=== PATIENT | male | born 1965 | race African-American/Black ===

== ENCOUNTER → 2017-01-16 | Outpatient (CLI) | payer MEDICAID, MEDICARE ==
[~2017-01-16] MED LIST: AMLO10TA2 PO; AMOX1TAB64 PO; ASPI-621 PO; ATOR20TA PO; CARV6.2512 PO; GABA300C10 PO; HUM100VI6 INJ; LISI-167 PO; LISI-170 PO; METO25TA35 PO; NPH,100V SQ; OXYC10TA6 PO; long acting insulin INJ
== END | disposition home or self-care (01) ==
LOC: CFH 10:25
PROVIDERS: ATTEND Internal Medicine Cardiovascular Disease
DX: I51.7 Cardiomegaly (principal); I08.1 Rheumatic disorders of both mitral and tricuspid valves; I37.1 Nonrheumatic pulmonary valve insufficiency; E11.9 Type 2 diabetes mellitus without complications
CPT/HCPCS: 93306

== ENCOUNTER 2021-02-28 10:25 | Emergency (ER) | payer MEDICARE ==
[~2021-02-28] VITALS: Ht 185.4 cm; Wt 105.0 kg
[~2021-02-28 10:25] MED LIST changes: +AMLO-150 PO; +AMLO-211 PO; -AMLO10TA2 PO; -ASPI-621 PO; +ASPI81TA45 PO; +ATOR10TA9 PO; +BENA20TA5 PO; +CARV12.52 PO; +CLON0.1T2 PO; +CLON0.2T PO; +DOXA2TAB9 PO; +FURO40TA6 PO; +FURO80TA3 PO; +HYDR-3343 PO; +HYDR100T25 PO; +METO2.5T PO; +SEVE800T8 PO
--- NOTE | 2021-02-28 10:51 | NUR ---
Pt PIPO ACEVEDO after son called 911. Pt with last known well time of 2300 last night. Pt woke up this morning on floor after having fallen out of bed. Pt states he worked to get himself food as he thought his blood sugar might be low. Per EMS son stated pt with ALOC. Presents A&Ox4. Pt states "this happened about 3 weeks ago too." MD Lemos to bedside for eval.
[2021-02-28 11:35] LABS: BASOPHILS % (AUTO) 1 % (0-1); EOSINOPHILS % (AUTO) 0 % (1-7); LYMPHOCYTES % (AUTO) 12 % (22-44); MEAN CORPUSCULAR HEMOGLOBIN 33.7 pg (27.5-34.5); MEAN CORPUSCULAR HGB CONC 34.7 g/dL (33.2-36.2); MONOCYTES % (AUTO) 8 % (2-9); NEUTROPHILS % (AUTO) 79 % (42-75); PLATELET COUNT 244 x10^3/uL (130-400); RED BLOOD COUNT 3.01 x10^6/uL (4.38-5.82); RED CELL DISTRIBUTION WIDTH 14.8 % (9.4-14.8)
[2021-02-28 11:45] LABS: ANION GAP 9 mmol/L (5-15); CALCIUM 9.5 mg/dL (8.5-10.1); CHLORIDE 98 mmol/L (98-107); CREATININE 6.53 mg/dL (0.7-1.3)
[2021-02-28] MEDS ORDERED: CALCIUM CARBONATE 500 MG TAB.CHEW ONE ×2 (11:50→11:55)
[2021-02-28] MEDS ORDERED: CALCIUM CARBONATE 500 MG TAB.CHEW PO PRN (12:00)
[2021-02-28] MEDS ORDERED: SODIUM CHLORIDE 0.9% 1,000ML IVBOLUS ONE (12:30)
[2021-02-28] MEDS ORDERED: BENA5TAB3 PO (12:41)
--- NOTE | 2021-02-28 12:41 | NUR ---
Med rec done to best of pt abilities.
--- NOTE | 2021-02-28 12:42 | NUR ---
Orthostatics done and standing BP 84/46. US guided IV placed and 500cc fluid bolus infusing now.
--- NOTE | 2021-02-28 13:37 | NUR ---
This RN repeated orthostatics after fluid bolus. Pt successfully ambulated approx 40 feet before he stated he was feeling light headed and dizzy and needed to sit down. Pt wheeled back to room.
[2021-02-28 14:16] LABS: MICROSCOPIC AUTO
--- NOTE | 2021-02-28 14:59 | NUR ---
MD Lemos back to bedside to update pt on POC. Pt to receive food and another 500cc bolus and be rechecked. Pt agrees to POC. Pt educated about labs by MD and understands he should continue with dialysis schedule without needing to go today.
[2021-02-28] MEDS ORDERED: SODIUM CHLORIDE 0.9%, 500ML IVBOLUS ONE (15:00)
--- NOTE | 2021-02-28 15:14 | NUR ---
FSBG 152. Pt has not eaten today and receiving more fluids. Ate half of a PB&J sandwhich.
[2021-02-28] MEDS ORDERED: NEOSPORIN OINT. PKT 1 PACKET ONE (16:25)
[2021-02-28 16:52] VITALS: BP 132/68
--- NOTE | 2021-02-28 16:53 | NUR ---
Pt ambulatory without difficulty with cane. Passed roattest prior to d/c.
== END 2021-02-28 16:58 | disposition home or self-care (01) ==
LOC: ED 14:10
DX: E16.2 Hypoglycemia, unspecified (principal); I95.1 Orthostatic hypotension; E86.0 Dehydration; R94.31 Abnormal electrocardiogram [ECG] [EKG]; I48.91 Unspecified atrial fibrillation; E11.9 Type 2 diabetes mellitus without complications; I11.0 Hypertensive heart disease with heart failure; I50.9 Heart failure, unspecified
CPT/HCPCS: 36415; 80048; 81001; 82040; 82962; 85025; 87086; 93005; 96360; 96361; 99285; J7030; J7040

== ENCOUNTER 2021-03-02 09:53 | Inpatient (IN) | payer MEDICARE ==
[~2021-03-02] VITALS: Ht 182.9 cm; Wt 101.6 kg
[~2021-03-02 09:53] MED LIST changes: +BENA5TAB3 PO
[2021-03-02] MEDS ORDERED: LORazepam 2 MG/ML, 1ML ONE (10:03)
[2021-03-02] MEDS: LORazepam 2 MG/ML, 1ML IVPush ONE ×2 (10:04→11:30)
[2021-03-02] MEDS ORDERED: LEVETIRACETAM 500 MG in SODIUM CHLORIDE 0.9% 100 ML IV ONE (10:30)
[2021-03-02] MEDS ORDERED: PLEASE ENTER HEIGHT AND WEIGHT MC SCH (10:30)
--- NOTE | 2021-03-02 10:30 | NUR ---
pt back from CT
[2021-03-02] MEDS ORDERED: PROPOFOL 100 ML IV PRN (11:00)
[2021-03-02] MEDS ORDERED: LEVETIRACETAM 1,000 MG in SODIUM CHLORIDE 0.9% 100 ML IV ONE (11:00)
[2021-03-02 11:11] LABS: BASOPHILS % (AUTO) 1 % (0-1); EOSINOPHILS % (AUTO) 1 % (1-7); LYMPHOCYTES % (AUTO) 13 % (22-44); MEAN CORPUSCULAR HEMOGLOBIN 33.8 pg (27.5-34.5); MEAN CORPUSCULAR HGB CONC 34.2 g/dL (33.2-36.2); MONOCYTES % (AUTO) 8 % (2-9); NEUTROPHILS % (AUTO) 77 % (42-75); PLATELET COUNT 206 x10^3/uL (130-400); RED BLOOD COUNT 2.59 x10^6/uL (4.38-5.82); RED CELL DISTRIBUTION WIDTH 15.8 % (9.4-14.8)
[2021-03-02] MEDS ORDERED: FENTANYL PF 100 MCG/2ML ONE (11:18)
[2021-03-02 11:23] LABS: ALANINE AMINOTRANSFERASE 16 U/L (12-78); ALBUMIN 3.2 g/dL (3.4-5.0); ANION GAP 16 mmol/L (5-15); CALCIUM 9.5 mg/dL (8.5-10.1); CHLORIDE 98 mmol/L (98-107); CREATININE 8.66 mg/dL (0.7-1.3)
[2021-03-02 11:25] LABS: ALKALINE PHOSPHATASE 86 U/L (45-117); BILIRUBIN,TOTAL 0.8 mg/dL (0.2-1.0); TOTAL PROTEIN 7.4 g/dL (6.4-8.2)
--- NOTE | 2021-03-02 11:29 | NUR ---
LATE ENTRY D/T PATIENT CARE: PT MONITORED DURING CT, ACCOMPANIED BY THIS RN. 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 APPROX 5 MIN AFTER [address] FROM CT, PT BEGAN TO POSTURE AND HAVE INCREASED AGITATION, NOT FOLLOWING ANY COMMANDS. MD LEGGETT CALLED TO BEDSIDE. ONCE MD AT BEDSIDE, PT BECAME APNEIC AND BRADYCARDIC ([place] RATE 40'S), SPOW DROPPED TO 40%. PULSE PALPATED THROUGHOUT EPISODE. PT VENTILATED WITH BVM, SAT RETURNED TO 98% WITH VENTILATION. PT MOVED TO TRAUMA 3. PT INTUBATED AT APPROX 1035, TOLERATED WELL WITH NO COMPLICATIONS. SON AT BEDSIDE, UPDATED AND GIVEN VERBAL REASSURANCE THROUGHOUT. PT TOLERATED WELL WITH NO COMPLICATIONS. NG PLACED TO RIGHT NARE. ALL MONITORS REMAIN IN PLACE. REPORT GIVEN TO ANDERSON CAO AT BEDSIDE, CARE ASSUMED BY ANDERSON MCCARTHY.
--- NOTE | 2021-03-02 11:29 | NUR ---
ASSUMED CARE FROM RODOLFO BARRON. 1043 ETOMIDATE/SUCC PER 1044 BGL 204 1046 8.[address], [address] LAW 1047 KEPPRA INFUSING 1049 2ND PIV 18G FELA 1057 14 FR NGT BY RODOLFO BARRON 1116 100 MCG [place] [address] NO ANSWER [address] NO ANSWER ABG, CXR PENDING.
[2021-03-02] MEDS ORDERED: LEVETIRACETAM 1,500 MG in SODIUM CHLORIDE 0.9% 100 ML IV ONE (11:30)
[2021-03-02 11:31] LABS: MICROSCOPIC AUTO
[2021-03-02 11:32] LABS: ANISOCYTOSIS 1+; POLYCHROMASIA 1+
[2021-03-02 11:33] LABS: <PLATELET ESTIMATE> ADEQUATE; <PLT MORPHOLOGY> NORMAL PLT MORPH
--- NOTE | 2021-03-02 11:33 | NUR ---
CT READY, RESP TO COME IN 10 MIN.
--- NOTE | 2021-03-02 11:36 | NUR ---
UPON PATIENT MOVE FROM ROOM 13 TO TRAUMA 3, PT'S SON REMAINED IN ROOM 13 UNTIL PT STABILIZED. UPON STABILIZATION, THIS RN AND LAW ATTEMPTED TO LOCATE PT'S SON TO UPDATE. PT'S SON NOT IN ED ANYMORE, NO ANSWER WHEN TELEPHONE CALLED.
--- NOTE | 2021-03-02 11:37 | NUR ---
RN UNABLE TO COMPLETE MED REC D/T PATIENT MENTAL STATUS, NO FAMILY PRESENT.
[2021-03-02 11:42] LABS: AMPHETAMINE SCREEN, URINE Negative (Negative); BARBITURATE SCREEN, URINE Negative (Negative); BENZODIAZEPINE SCREEN, URINE Negative (Negative); CANNABINOID SCREEN, URINE Negative (Negative); COCAINE SCREEN, URINE Negative (Negative); METHADONE SCREEN, URINE Negative (Negative); OPIATE SCREEN, URINE Negative (Negative)
[2021-03-02] MEDS ORDERED: ETOMIDATE 20 MG/10 ML IVPush ONE (12:00)
[2021-03-02] MEDS ORDERED: ACETAMINOPHEN 325 MG TABLET PO PRN (12:00)
[2021-03-02] MEDS ORDERED: SUCCINYLCHOLINE 20 MG/ML, 10ML IVPush ONE (12:00)
[2021-03-02] MEDS ORDERED: ONDANSETRON 2MG/ML, 2ML IVPush PRN (12:00)
[2021-03-02] MEDS ORDERED: POLYETHYLENE GLYCOL 17 GM PACKET PO PRN (12:00)
[2021-03-02] MEDS ORDERED: OXYcodone IR 5MG TABLET PO PRN (12:00)
[2021-03-02] MEDS ORDERED: LEVETIRACETAM 1,000 MG in SODIUM CHLORIDE 0.9% 100 ML IV SCH (12:00)
[2021-03-02] MEDS ORDERED: LORazepam 2 MG/ML, 1ML IVPush PRN (12:00)
[2021-03-02] MEDS ORDERED: morphine SULFATE 10 MG/ML, 1ML IVPush PRN (12:00)
[2021-03-02] MEDS ORDERED: FENTANYL PF 100 MCG/2ML IVPush ONE ×2 (12:00→12:30)
[2021-03-02] MEDS ORDERED: BISACODYL 10 MG SUPP PR PRN (12:00)
--- NOTE | 2021-03-02 12:05 | NUR ---
PT TO AND FROM CT. REPORT TO BEAR BARRON.
--- NOTE | 2021-03-02 12:07 | NUR ---
law at bedside to discuss w family. as
--- NOTE | 2021-03-02 12:11 | NUR ---
hotel director at bedside. as
[2021-03-02] MEDS ORDERED: VECURONIUM 10 MG IVPush ONE (12:30)
--- NOTE | 2021-03-02 12:48 | NUR ---
1230 NEPHRO WAS AT BEDSIDE, PT TX TO CCU TO [facility]AR [facility], NOTIFIED BEAR RN THAT WEIGHT NEEDS TO BE UPDATED DT STRETCHER BEING BROKEBN.
[2021-03-02] MEDS: ENALAPRILAT 1.25 MG/ML, 2ML IVPush PRN ×2 (12:55→22:05)
[2021-03-02] MEDS: HEPARIN 5,000 UNITS/ML, 1ML SQ SCH ×2 (12:58→21:11)
[2021-03-02 13:00] VITALS: BP 185/71
[2021-03-02] MEDS ORDERED: PHARMACY MAY ADJ FOR RENAL FX MC SCH (13:00)
[2021-03-02] MEDS ORDERED: LIDOCAINE-MPF 1%, 2ML ENDO PRN (13:00)
[2021-03-02] MEDS: FENTANYL PF 100 MCG/2ML IVPush PRN ×2 (13:19→14:27)
[2021-03-02] MEDS: LABETALOL 5MG/ML, 20ML IVPush PRN ×2 (13:52→21:04)
[2021-03-02] MEDS ORDERED: ETOMIDATE 20 MG/10 ML ONE (14:00)
[2021-03-02] MEDS ORDERED: VECURONIUM 10 MG ONE (14:00)
[2021-03-02] MEDS ORDERED: SUCCINYLCHOLINE 20 MG/ML, 10ML ONE (14:00)
[2021-03-02] MEDS ORDERED: PROPOFOL 10 MG/ML, 100ML IV ONE (14:00)
[2021-03-02] MEDS: PROPOFOL 100 ML IV PRN ×3 (14:01→21:11)
[2021-03-02] MEDS: FENTANYL PF 1,000 MCG in SODIUM CHLORIDE 0.9% 80 ML IV PRN (14:37)
[2021-03-02] MEDS ORDERED: BENA20TA5 PO (15:16)
[2021-03-02] MEDS ORDERED: CLON0.1T2 PO (15:16)
[2021-03-02] MEDS ORDERED: SEVE800T8 PO (15:16)
[2021-03-02] MEDS ORDERED: DOXA8TAB63 PO (15:16)
[2021-03-02] MEDS ORDERED: AMLO-211 PO (15:16)
[2021-03-02] MEDS: INSULIN LISPRO 100 UNITS/ML, PEN SQ-INSULIN SCH ×2 (15:35→21:03)
[2021-03-02] MEDS: CARVEDILOL 12.5 MG TABLET PO SCH (17:22)
[2021-03-02] MEDS: FAMOTIDINE 20 MG/2 ML IVPush SCH (21:11)
[2021-03-02 21:58] VITALS: BP 156/67
[2021-03-02] MEDS: LEVETIRACETAM 500 MG in SODIUM CHLORIDE 0.9% 100 ML IV SCH (22:13)
[2021-03-03] MEDS: PROPOFOL 100 ML IV PRN ×5 (00:44→22:53)
[2021-03-03] MEDS: CARVEDILOL 12.5 MG TABLET PO SCH ×2 (05:23→17:54)
[2021-03-03] MEDS: HEPARIN 5,000 UNITS/ML, 1ML SQ SCH ×3 (05:23→20:53)
[2021-03-03 06:32] LABS: BASOPHILS % (AUTO) 2 % (0-1); EOSINOPHILS % (AUTO) 4 % (1-7); LYMPHOCYTES % (AUTO) 14 % (22-44); MEAN CORPUSCULAR HEMOGLOBIN 34.3 pg (27.5-34.5); MEAN CORPUSCULAR HGB CONC 34.8 g/dL (33.2-36.2); MONOCYTES % (AUTO) 10 % (2-9); NEUTROPHILS % (AUTO) 71 % (42-75); PLATELET COUNT 183 x10^3/uL (130-400); RED BLOOD COUNT 2.41 x10^6/uL (4.38-5.82); RED CELL DISTRIBUTION WIDTH 18.5 % (9.4-14.8)
[2021-03-03] MEDS: FENTANYL PF 1,000 MCG in SODIUM CHLORIDE 0.9% 80 ML IV PRN ×3 (06:41→17:55)
[2021-03-03 06:47] LABS: ALANINE AMINOTRANSFERASE 15 U/L (12-78); ALBUMIN 2.8 g/dL (3.4-5.0); ANION GAP 8 mmol/L (5-15); CALCIUM 8.7 mg/dL (8.5-10.1); CHLORIDE 105 mmol/L (98-107); CREATININE 5.07 mg/dL (0.7-1.3)
[2021-03-03 06:52] LABS: % IRON SATURATION 32 % (20-55); ALKALINE PHOSPHATASE 79 U/L (45-117); BILIRUBIN,TOTAL 0.7 mg/dL (0.2-1.0); IRON LEVEL 66 mcg/dL (65-175); TOTAL IRON BINDING CAPACITY 205 mcg/dL (250-450); TOTAL PROTEIN 6.7 g/dL (6.4-8.2)
[2021-03-03 06:54] LABS: CALCIUM 8.7 mg/dL (8.5-10.1)
[2021-03-03] MEDS: INSULIN LISPRO 100 UNITS/ML, PEN SQ-INSULIN SCH ×4 (07:00→20:54)
[2021-03-03] MEDS ORDERED: SODIUM PHOSPHATE 20 MMOL in SODIUM CHLORIDE 0.9% 500 ML IV ONE (07:30)
[2021-03-03] MEDS: DEXMEDETOMIDINE 200 MCG in SODIUM CHLORIDE 0.9% 48 ML IV PRN ×4 (09:12→22:53)
[2021-03-03] MEDS: SENNA/DOCUSATE TABLET PO SCH (09:18)
[2021-03-03] MEDS: LEVETIRACETAM 500 MG in SODIUM CHLORIDE 0.9% 100 ML IV SCH ×2 (09:51→21:47)
[2021-03-03] MEDS ORDERED: LEVETIRACETAM 1,000 MG in SODIUM CHLORIDE 0.9% 100 ML IV SCH (15:00)
--- NOTE | 2021-03-03 15:36 | NUR ---
TF RECS if needed: Vital HP at goal 50 ml/hr (ON propofol) 60 ml/hr (OFF propofol) Addendum: 03/03/21 at [address] Amended: Links added.
[2021-03-03] MEDS: FAMOTIDINE 20 MG/2 ML IVPush SCH (20:53)
[2021-03-04] MEDS: PROPOFOL 100 ML IV PRN ×2 (03:18→11:01)
[2021-03-04] MEDS: DEXMEDETOMIDINE 200 MCG in SODIUM CHLORIDE 0.9% 48 ML IV PRN ×3 (03:18→10:59)
[2021-03-04 04:26] LABS: BASOPHILS % (AUTO) 1 % (0-1); EOSINOPHILS % (AUTO) 5 % (1-7); LYMPHOCYTES % (AUTO) 15 % (22-44); MEAN CORPUSCULAR HEMOGLOBIN 34.8 pg (27.5-34.5); MEAN CORPUSCULAR HGB CONC 35.3 g/dL (33.2-36.2); MEAN PLATELET VOLUME 7.3 fL (7.4-10.4); MONOCYTES % (AUTO) 8 % (2-9); NEUTROPHILS % (AUTO) 71 % (42-75); PLATELET COUNT 195 x10^3/uL (130-400); RED BLOOD COUNT 2.44 x10^6/uL (4.38-5.82); RED CELL DISTRIBUTION WIDTH 20.1 % (9.4-14.8)
[2021-03-04] MEDS: HEPARIN 5,000 UNITS/ML, 1ML SQ SCH ×3 (04:28→21:43)
[2021-03-04] MEDS: FENTANYL PF 1,000 MCG in SODIUM CHLORIDE 0.9% 80 ML IV PRN (04:29)
[2021-03-04] MEDS: CARVEDILOL 12.5 MG TABLET PO SCH ×2 (05:50→18:00)
[2021-03-04] MEDS: INSULIN LISPRO 100 UNITS/ML, PEN SQ-INSULIN SCH ×4 (05:50→21:00)
[2021-03-04 06:35] LABS: ALBUMIN 2.6 g/dL (3.4-5.0); ANION GAP 9 mmol/L (5-15); CALCIUM 8.2 mg/dL (8.5-10.1); CHLORIDE 106 mmol/L (98-107); CREATININE 6.18 mg/dL (0.7-1.3)
[2021-03-04 06:38] LABS: ALANINE AMINOTRANSFERASE 15 U/L (12-78); ALKALINE PHOSPHATASE 81 U/L (45-117); BILIRUBIN,TOTAL 0.5 mg/dL (0.2-1.0); TOTAL PROTEIN 6.5 g/dL (6.4-8.2)
[2021-03-04] MEDS: SENNA/DOCUSATE TABLET PO SCH (09:13)
[2021-03-04] MEDS: LEVETIRACETAM 500 MG in SODIUM CHLORIDE 0.9% 100 ML IV SCH (09:14)
[2021-03-04] MEDS: ENALAPRILAT 1.25 MG/ML, 2ML IVPush PRN ×2 (11:20→18:31)
[2021-03-04] MEDS: SEVELAMER CARBONATE 800MG TAB PO SCH ×3 (12:24→21:44)
[2021-03-04] MEDS: AMLODIPINE 10 MG TAB PO SCH (12:30)
[2021-03-04] MEDS: LABETALOL 5MG/ML, 20ML IVPush PRN (16:10)
[2021-03-04] MEDS: DEXMEDETOMIDINE 400 MCG in SODIUM CHLORIDE 0.9% 96 ML IV PRN ×3 (16:16→22:05)
[2021-03-04] MEDS: FAMOTIDINE 20 MG/2 ML IVPush SCH (21:42)
[2021-03-04] MEDS: BENAZEPRIL 20 MG TABLET PO SCH (21:44)
[2021-03-04] MEDS: DOXAZOSIN 2MG TABLET PO SCH (21:44)
[2021-03-04] MEDS: LEVETIRACETAM 250 MG in SODIUM CHLORIDE 0.9% 100 ML IV SCH (22:02)
[2021-03-05] MEDS: DEXMEDETOMIDINE 400 MCG in SODIUM CHLORIDE 0.9% 96 ML IV PRN ×4 (00:03→08:49)
[2021-03-05] MEDS: LABETALOL 5MG/ML, 20ML IVPush PRN ×2 (02:04→05:59)
[2021-03-05 05:11] LABS: BASOPHILS % (AUTO) 1 % (0-1); EOSINOPHILS % (AUTO) 4 % (1-7); LYMPHOCYTES % (AUTO) 11 % (22-44); MEAN CORPUSCULAR HEMOGLOBIN 34.3 pg (27.5-34.5); MEAN CORPUSCULAR HGB CONC 35.4 g/dL (33.2-36.2); MEAN PLATELET VOLUME 6.7 fL (7.4-10.4); MONOCYTES % (AUTO) 7 % (2-9); NEUTROPHILS % (AUTO) 78 % (42-75); PLATELET COUNT 203 x10^3/uL (130-400); RED BLOOD COUNT 2.73 x10^6/uL (4.38-5.82); RED CELL DISTRIBUTION WIDTH 19.9 % (9.4-14.8)
[2021-03-05] MEDS: HEPARIN 5,000 UNITS/ML, 1ML SQ SCH ×3 (05:14→21:53)
[2021-03-05] MEDS: CARVEDILOL 12.5 MG TABLET PO SCH ×2 (05:15→18:00)
[2021-03-05 06:57] LABS: ANION GAP 10 mmol/L (5-15); CHLORIDE 111 mmol/L (98-107); CREATININE 7.26 mg/dL (0.7-1.3)
[2021-03-05] MEDS: INSULIN LISPRO 100 UNITS/ML, PEN SQ-INSULIN SCH ×4 (07:00→20:49)
[2021-03-05] MEDS: ENALAPRILAT 1.25 MG/ML, 2ML IVPush PRN (07:30)
[2021-03-05] MEDS: BENAZEPRIL 20 MG TABLET PO SCH ×2 (08:49→21:54)
[2021-03-05] MEDS: SEVELAMER CARBONATE 800MG TAB PO SCH (08:49)
[2021-03-05] MEDS: AMLODIPINE 10 MG TAB PO SCH (08:49)
[2021-03-05] MEDS: SENNA/DOCUSATE TABLET PO SCH (08:50)
[2021-03-05] MEDS: LEVETIRACETAM 250 MG in SODIUM CHLORIDE 0.9% 100 ML IV SCH ×2 (10:10→22:27)
[2021-03-05] MEDS ORDERED: ARANESP 100 MCG/ML **ESRD SQ SCH (12:00)
[2021-03-05 13:41] VITALS: BP 153/69
[2021-03-05 16:44] VITALS: BP 162/66
[2021-03-05 21:47] VITALS: BP 169/71
[2021-03-05] MEDS: FAMOTIDINE 20 MG/2 ML IVPush SCH (21:53)
[2021-03-05] MEDS: DOXAZOSIN 2MG TABLET PO SCH (21:56)
[2021-03-06] VITALS (8 sets, daily range): BP systolic 126–176; BP diastolic 70–85
[2021-03-06] MEDS: CARVEDILOL 12.5 MG TABLET PO SCH ×2 (05:35→16:14)
[2021-03-06] MEDS: HEPARIN 5,000 UNITS/ML, 1ML SQ SCH ×3 (05:35→21:01)
[2021-03-06 06:05] LABS: BASOPHILS % (AUTO) 1 % (0-1); EOSINOPHILS % (AUTO) 2 % (1-7); LYMPHOCYTES % (AUTO) 15 % (22-44); MEAN CORPUSCULAR HGB CONC 34.9 g/dL (33.2-36.2); MEAN PLATELET VOLUME 6.9 fL (7.4-10.4); MONOCYTES % (AUTO) 9 % (2-9); NEUTROPHILS % (AUTO) 73 % (42-75); PLATELET COUNT 186 x10^3/uL (130-400); RED CELL DISTRIBUTION WIDTH 21.3 % (9.4-14.8)
[2021-03-06 06:14] LABS: ALBUMIN 2.7 g/dL (3.4-5.0); ANION GAP 8 mmol/L (5-15); CALCIUM 8.4 mg/dL (8.5-10.1); CHLORIDE 106 mmol/L (98-107); CREATININE 5.56 mg/dL (0.7-1.3)
[2021-03-06] MEDS: INSULIN LISPRO 100 UNITS/ML, PEN SQ-INSULIN SCH ×4 (07:48→21:08)
[2021-03-06] MEDS: BENAZEPRIL 20 MG TABLET PO SCH ×2 (08:54→21:01)
[2021-03-06] MEDS: SENNA/DOCUSATE TABLET PO SCH (08:54)
[2021-03-06] MEDS: AMLODIPINE 10 MG TAB PO SCH (08:55)
[2021-03-06] MEDS: LEVETIRACETAM 250 MG in SODIUM CHLORIDE 0.9% 100 ML IV SCH ×2 (09:38→21:42)
[2021-03-06] MEDS ORDERED: ARANESP 100 MCG/ML **ESRD SQ SCH (10:49)
[2021-03-06] MEDS: THIAMINE 200 MG in SODIUM CHLORIDE 0.9% 50 ML IV SCH (11:02)
[2021-03-06] MEDS ORDERED: LORazepam 2 MG/ML, 1ML IVPush ONE (13:30)
[2021-03-06] MEDS: DOXAZOSIN 2MG TABLET PO SCH (21:01)
[2021-03-06] MEDS: LABETALOL 5MG/ML, 20ML IVPush PRN (22:30)
[2021-03-07 00:49] VITALS: BP 156/68
[2021-03-07 05:49] VITALS: BP 156/75
[2021-03-07] MEDS: CARVEDILOL 12.5 MG TABLET PO SCH (05:50)
[2021-03-07] MEDS: HEPARIN 5,000 UNITS/ML, 1ML SQ SCH ×2 (05:50→13:18)
[2021-03-07 06:00] LABS: ALBUMIN 2.6 g/dL (3.4-5.0); ANION GAP 8 mmol/L (5-15); CALCIUM 8.5 mg/dL (8.5-10.1); CHLORIDE 109 mmol/L (98-107); CREATININE 6.96 mg/dL (0.7-1.3)
[2021-03-07] MEDS: INSULIN LISPRO 100 UNITS/ML, PEN SQ-INSULIN SCH ×2 (07:21→11:13)
[2021-03-07 07:33] VITALS: BP 173/91
[2021-03-07] MEDS: BENAZEPRIL 20 MG TABLET PO SCH (07:54)
[2021-03-07] MEDS: AMLODIPINE 10 MG TAB PO SCH (07:54)
[2021-03-07] MEDS: SENNA/DOCUSATE TABLET PO SCH (08:21)
[2021-03-07] MEDS: THIAMINE 200 MG in SODIUM CHLORIDE 0.9% 50 ML IV SCH (08:27)
[2021-03-07 14:51] VITALS: BP 109/63
[2021-03-07] MEDS ORDERED: LEVE500T53 PO (14:58)
[2021-03-07] MEDS ORDERED: CARV25TA12 PO (14:58)
[2021-03-07] MEDS ORDERED: CARVEDILOL 25 MG TABLET PO SCH (18:00)
[2021-03-08] MEDS ORDERED: LEVETIRACETAM 500 MG TABLET PO SCH (09:00)
[2021-03-11] MEDS ORDERED: ARANESP 100 MCG/ML **ESRD SQ SCH (14:30)
== END 2021-03-07 16:47 | disposition home health service (06) | DRG 208 ==
LOC: ED 10:09 → EDIP 11:42 → CCU 12:25 → 4EST 03-05 13:30 → DCLOUNGE 03-07 16:37
PROVIDERS: ADMIT Internal Medicine; ATTEND Hospitalist
PROC: 5A1945Z Respiratory Ventilation, 24-96 Consecutive Hours (ICD-10-PCS; principal; 2021-03-02)
PROC: 0BH17EZ Insertion of Endotracheal Airway into Trachea, Via Natural or Artificial Opening (ICD-10-PCS; 2021-03-02)
PROC: 5A1D70Z Performance of Urinary Filtration, Intermittent, Less than 6 Hours Per Day (ICD-10-PCS; 2021-03-05)
PROC: 5A1D70Z Performance of Urinary Filtration, Intermittent, Less than 6 Hours Per Day (ICD-10-PCS; 2021-03-07)
DX: J96.01 Acute respiratory failure with hypoxia (principal); N18.6 End stage renal disease; I13.2 Hypertensive heart and chronic kidney disease with heart failure and with stage 5 chronic kidney disease, or end stage renal disease; F05 Delirium due to known physiological condition; I50.30 Unspecified diastolic (congestive) heart failure; N17.9 Acute kidney failure, unspecified; Z99.11 Dependence on respirator [ventilator] status; G40.901 Epilepsy, unspecified, not intractable, with status epilepticus; D63.1 Anemia in chronic kidney disease; E11.22 Type 2 diabetes mellitus with diabetic chronic kidney disease; E11.40 Type 2 diabetes mellitus with diabetic neuropathy, unspecified; E11.51 Type 2 diabetes mellitus with diabetic peripheral angiopathy without gangrene; E11.649 Type 2 diabetes mellitus with hypoglycemia without coma; E87.6 Hypokalemia; F10.10 Alcohol abuse, uncomplicated; G31.84 Mild cognitive impairment of uncertain or unknown etiology; G47.33 Obstructive sleep apnea (adult) (pediatric); I07.1 Rheumatic tricuspid insufficiency; I27.29 Other secondary pulmonary hypertension; Z79.4 Long term (current) use of insulin; Z79.899 Other long term (current) drug therapy; Z87.891 Personal history of nicotine dependence; Z89.512 Acquired absence of left leg below knee; Z91.19 Patient's noncompliance with other medical treatment and regimen; Z99.2 Dependence on renal dialysis
CPT/HCPCS: 31500; 36415; 36600; 70450; 70551; 71045; 80048; 80053; 80069; 80307; 81001; 82306; 82310; 82728; 82803; 82962; 83036; 83540; 83550; 83735; 83970; 84100; 84478; 85025; 86705; 86706; 87070; 87081; 87205; 87340; 90935; 93005; 94002; 94003; 95819; 99292; G0378; J0882; J1644; J1953; J2704; J3010; J3411; 92523-GN; J0330; J1815; J2060; J2270; J7040; J7050